=== PATIENT | male | born 2000 | race Two or more races ===

== ENCOUNTER 2024-07-22 16:54 | Emergency (ER) | payer SELFPAY ==
[2024-07-22 16:58] VITALS: BMI 27.8
[2024-07-22 17:11] VITALS: BP 133/74; PULSE 92; RESP 18; TEMP 36.7; O2SAT 100
--- NOTE | 2024-07-22 17:15 | EDRME_ITS ---
Rapid Medical Screening Exam [facility] Arrival date/time: 07/22/24 16:54 23-year-old male with no known medical history presents to the emergency room with a chief complaint of shortness of breath, congestion x 1 hour. Patient states he was at the gym and began to have some shortness of breath. I have greeted and performed a focused initial assessment of this patient. A comprehensive ED assessment and evaluation of the patient, analysis of all test results, and completion of the medical decision making process will be conducted by additional ED providers. Chief Complaint: Shortness of Breath/Dyspnea Time Seen by Provider: 07/22/24 17:10 Vital signs: Vital Signs Temperature 98.0 F 07/22/24 17:11 Pulse Rate 92 07/22/24 17:11 Respiratory Rate 18 07/22/24 17:11 Blood Pressure 133/74 H 07/22/24 17:11 Pulse Oximetry (%) 100 07/22/24 17:11 Oxygen Delivery Method Room Air 07/22/24 17:11 Vital signs reviewed by provider: Yes
--- NOTE | 2024-07-22 17:15 | XR_ITS ---
Examination: PA lateral chest 2 views TECHNIQUE: Upright PA and lateral chest 2 views Examination time: July 22, 2024 at 1739 hours INDICATIONS: Shortness of breath congestion today FINDINGS: Normal heart size Lungs are clear. The osseous structures are intact IMPRESSION: No active disease
--- NOTE | 2024-07-22 19:15 | PD.EDADULT ---
ED General RME/HPI General Chief complaint: Shortness of Breath/Dyspnea Stated complaint: SOB Time Seen by Provider: 07/22/24 17:10 Arrival date/time: 07/22/24 16:54 CC: Intermittent episodes of shortness of breath. The patient states that the last episode was approximately 1 hour ago lasting for 1 hour where he could not catch his breath. At this time it is completely resolved. The patient denies any chest pain fever or any other symptoms. No OTC medicines taken. RME / HPI RME / HPI narrative: 07/22/24 16:54 23-year-old male with no known medical history presents to the emergency room with a chief complaint of shortness of breath, congestion x 1 hour. Patient states he was at the gym and began to have some shortness of breath. I have greeted and performed a focused initial assessment of this patient. A comprehensive ED assessment and evaluation of the patient, analysis of all test results, and completion of the medical decision making process will be conducted by additional ED providers. Related Data Home Medications ?Medication ?Instructions ?Recorded ?Confirmed No Known Home Medications 06/13/21 06/13/21 Allergies Allergy/AdvReac Type Severity Reaction Status Date / Time No Known Allergies Allergy Verified 06/13/21 12:58 Review of Systems Review of Systems Narrative Review of Systems: GEN: No fever, no chills, no weight loss EYES: No discharge, no visual changes, no pain HEENT: No ear pain, no congestion, no sore throat PULM: N+shortness of breath, no cough, no congestion CV: No chest pain, no dyspnea on exertion, no palpitations GI: No nausea, no vomiting, no diarrhea, no pain, no constipation : No frequency, no urgency, no dysuria MUSC/SKEL: No joint pain, no back pain SKIN: No rash PSYCH: No hallucinations, no depression HEME/LYMPH: No easy bleeding or bruising tendencies NEURO: No weakness, no headache Past Medical History Social History SMOKING STATUS: Never smoker ED Exam Narrative Physical exam: [General: acute distress Head normocephalic HEENT: Within acceptable limits Neck is supple nontender Chest equal chest rise nontender to palpation Respiratory: Clear to auscultation no wheezes crackles or rubs CV: Rate rhythm is regular no murmurs rubs or clicks Abdome is soft nontender no masses positive bowel sounds all 4 quadrants Back: No CVA tenderness no spinous process tenderness from cervical spine thoracic and lumbar spine Skin: Intact no petechiae rash induration ulceration or crepitus Extremities: Moving all extremity against resistance cap refill less than 2 seconds neurosensory intact Neuro: Awake alert oriented x3 Glascow coma 15 no focal deficits] Course Quality Measures none Orders Category Date Time Status Bedside COVID-19 Antigen Test NOW Care 07/22/24 17:15 Active Bedside Influenza A&B Antigen Test NOW Care 07/22/24 17:15 Completed XR chest 2V Stat Exams 07/22/24 17:15 Completed Vital Signs Vital signs: Vital Signs Temperature 98.0 F 07/22/24 17:11 Pulse Rate 92 07/22/24 17:11 Respiratory Rate 18 07/22/24 17:11 Blood Pressure 133/74 H 07/22/24 17:11 Pulse Oximetry (%) 100 07/22/24 17:11 Oxygen Delivery Method Room Air 07/22/24 17:11 MDM Patient data External records reviewed:: [facility] previous records Clinical information provided by:: patient Social determinants that could affect healthcare access:: none Patient has the following chronic illnesses:: None How is presenting disease/condition affected by chronic disease/condition?: uneffected by Evaluation data The following diagnostics were reviewed and interpreted by me:: lab results and radiology exam(s) Lab and/or radiology exams considered but not ordered:: COVID influenza negative Chest x-ray as interpreted by me read by radiology as negative Interpretation Summary: Suspected to be an early allergic reaction its intermittent nature or it symptomatic. However the patient not in any acute test with no acute findings. Medications Medications considered but not ordered:: None Medication administrations:: None Consultations Consultation(s) initiated? (list below): No Diagnosis Differential Diagnosis ED Complaint MDM: Pneumonia COVID influenza Most likely diagnosis given after review of the tests above:: Intermittent shortness of breath Admission Indicated Admission indicated?: not indicated Explain why admission is indicated or not indicated:: Stable for outpatient follow-up Admission Request Was there a request for admission?: No Disposition Plan Disposition Plan: Discharge Discharge Attestation Discharge Attestation: The patient and all family members were given an opportunity to ask questions and understood the discharge instructions. Discharge instructions specifically effects, indications for sooner follow up or return to the emergency department, and the expected course of current diagnosis. Patient condition: Stable Medical Decision Making Differential Diagnosis Differential Diagnosis: Pneumonia COVID influenza Discharge Plan Plan Patient Disposition: HOME (Self Care) Patient condition on transfer: Benefits outweigh risks Prescriptions/Referrals Prescriptions/Med Rec: No Action No Known Home Medications Referrals: Deb Lea, TELEVISION ENGINEERING TEACHER [Primary Care Provider] - In 1 week Problem List Clinical Impression: Shortness of breath Patient/Caregiver Discharge Instructions Education Materials: ED Shortness of Breath (Dyspnea) Print Language: Turkmen Stand Alone Forms: Laura Award Info., Patient Portal Info Letter PA/SAND HAULER Supervising Physician PA/SAND HAULER Supervising Physician: Teodoro Llanes ENP
[2024-07-22 19:25] VITALS: BP 124/65; PULSE 78; RESP 18; TEMP 36.7; O2SAT 99
== END 2024-07-22 19:26 | disposition home or self-care (01) ==
PROVIDERS: Emergency Provider Emergency Medicine; PCP Nurse Practitioner Women's Health
DX: R06.02 Shortness of breath (principal)
CPT/HCPCS: 71046; 87400; 87811; 99283